=== PATIENT | male | born 1955 | race Caucasian/White ===

== ENCOUNTER 2017-12-23 20:55 | Emergency (ER) | payer SELFPAY ==
[~2017-12-23] VITALS: Ht 180.3 cm; Wt 81.6 kg
[2017-12-23 21:43] VITALS: BP 150/87
== END 2017-12-23 23:15 | disposition left against medical advice (07) ==
LOC: EDBD 20:55 → ER 21:01
DX: R10.9 Unspecified abdominal pain (principal); R11.2 Nausea with vomiting, unspecified; Z53.21 Procedure and treatment not carried out due to patient leaving prior to being seen by health care provider